=== PATIENT | female | born 2000 | race Caucasian/White ===

== ENCOUNTER 2025-10-06 16:53 | Emergency (ER) | payer SELFPAY ==
[~2025-10-06] VITALS: Ht 157.5 cm; Wt 60.0 kg
[2025-10-06 17:19] VITALS: O2SAT 99
[2025-10-06 18:22] LABS: GLUCOSE URINE 1+ (NEGATIVE); KETONES URINE NEGATIVE (NEGATIVE); LEUKOCYTE ESTERASE URINE NEGATIVE (NEGATIVE); NITRITE URINE NEGATIVE (NEGATIVE); OCCULT BLOOD URINE NEGATIVE (NEGATIVE); PH URINE 6.0 (4.5-8.0); PROTEIN URINE NEGATIVE (NEGATIVE); SPECIFIC GRAVITY URINE 1.014 (1.005-1.030); UROBILINOGEN URINE 0.2 E.U./dL (0.2-1.0)
[2025-10-06 18:39] LABS: COLOR URINE STRAW (YELLOW)
[2025-10-06 18:40] LABS: CLARITY URINE SL HAZY (CLEAR)
[2025-10-06 18:41] LABS: BACTERIA URINE 1+; RBC URINE NONE SEEN /hpf (0-2); SQUAMOUS EPITHELIAL CELL URINE 1+ /lpf (RARE/1+); WBC URINE 0-2 /hpf (0-2)
[2025-10-06 19:08] LABS: BASOPHILS % 0.7 % (0.0-2.0); EOSINOPHILS % 0.4 % (0.0-5.0); HEMATOCRIT. 43.5 % (36.0-48.0); HEMOGLOBIN. 14.2 g/dL (12.0-16.0); LYMPHOCYTES % 40.4 % (20.0-50.0); MEAN PLATELET VOLUME 10.8 fl (7.4-10.4); MONOCYTES % 6.6 % (2.0-8.0); NEUTROPHILS % 51.9 % (40.0-76.0); PLATELET 270 x1000/uL (130-400); RED BLOOD CELL COUNT 4.84 mill/uL (4.2-5.4); RED CELL DISTRIBUTION WIDTH 13.9 % (11.6-14.6)
[2025-10-06 19:23] LABS: CREATININE 0.7 mg/dL (0.6-1.0)
[2025-10-06 19:24] LABS: UREA NITROGEN BLOOD 7 mg/dL (9-23)
[2025-10-06 19:25] LABS: ASPARTATE AMINOTRANSFERASE 13 IU/L (<34)
[2025-10-06 19:26] LABS: BILIRUBIN DIRECT 0.2 mg/dL (<=3.0); BILIRUBIN TOTAL 0.5 mg/dL (0.1-1.0); PROTEIN TOTAL 7.4 g/dL (6.0-8.3)
[2025-10-06 20:06] LABS: HCG SCREEN NEGATIVE
[2025-10-06] MEDS ORDERED: AMOX-494 MT (20:42)
[2025-10-06 20:51] VITALS: BP 116/73; PULSE 77; RESP 18; TEMP 37.2; O2SAT 99
== END 2025-10-06 20:52 | disposition home or self-care (01) ==
LOC: EDBD → ER 16:53
DX: B34.9 Viral infection, unspecified (principal); H66.93 Otitis media, unspecified, bilateral; I10 Essential (primary) hypertension; J45.909 Unspecified asthma, uncomplicated
CPT/HCPCS: 36415; 80048; 80076; 81003; 81025; 83735; 84703; 85025; 99283

== ENCOUNTER 2025-10-07 19:02 | Emergency (ER) | payer BC ==
[~2025-10-07] VITALS: Ht 160 cm; Wt 61.0 kg
[~2025-10-07 19:02] MED LIST: AMOX-494 MT
[2025-10-07 19:04] VITALS: O2SAT 98
[2025-10-07 20:13] LABS: HEMATOCRIT. 42.1 % (36.0-48.0); HEMOGLOBIN. 14.0 g/dL (12.0-16.0); MEAN PLATELET VOLUME 10.6 fl (7.4-10.4); PLATELET 297 x1000/uL (130-400); RED BLOOD CELL COUNT 4.68 mill/uL (4.2-5.4); RED CELL DISTRIBUTION WIDTH 13.4 % (11.6-14.6)
[2025-10-07 20:45] LABS: CREATININE 0.6 mg/dL (0.6-1.0)
[2025-10-07 20:46] LABS: ETHANOL BLOOD < 10 mg/dL (<10); UREA NITROGEN BLOOD < 5 mg/dL (9-23)
[2025-10-07 20:47] LABS: ASPARTATE AMINOTRANSFERASE 34 IU/L (<34); PROTEIN TOTAL 6.9 g/dL (6.0-8.3)
[2025-10-07 20:48] LABS: BILIRUBIN DIRECT 0.2 mg/dL (<=3.0); BILIRUBIN TOTAL 0.7 mg/dL (0.1-1.0)
[2025-10-07] MEDS: SODIUM CHLORIDE 0.9% 1,000 ML IV ONE (21:15)
[2025-10-07] MEDS: DEXTROSE 50% WATER 50ML SYRINGE IV ONE (21:15)
[2025-10-07] MEDS: ONDANSETRON HCL 4MG/2ML INJ IV ONE (21:16)
[2025-10-07] MEDS: ONDANSETRON HCL 4MG/2ML INJ IV SCH (21:16)
[2025-10-07 21:57] LABS: LYMPHOCYTES % MANUAL 11.0 % (20.0-60.0); MONOCYTES % MANUAL 4.0 % (2.0-8.0); NEUTROPHILS % MANUAL 85.0 % (45.0-75.0); PLATELET ESTIMATE NORMAL
[2025-10-07 22:22] LABS: *AMPHETAMINES SCREEN URINE NEGATIVE (NEGATIVE); *BARBITURATES SCREEN URINE NEGATIVE (NEGATIVE); *BENZODIAZEPINES SCREEN URINE NEGATIVE (NEGATIVE)
[2025-10-07 22:23] LABS: *COCAINE SCREEN URINE NEGATIVE (NEGATIVE); CANNABINOID URINE SCREEN PRESUMPTIVE POSITIVE (NEGATIVE); ECSTASY MDMA SCREEN URINE NEGATIVE (NEGATIVE); METHADONE URINE SCREEN NEGATIVE (NEGATIVE); OPIATES URINE SCREEN NEGATIVE (NEGATIVE); PHENCYCLIDINE URINE SCREEN NEGATIVE (NEGATIVE)
[2025-10-07 23:39] LABS: CLARITY URINE TURBID (CLEAR); COLOR URINE BROWN (YELLOW)
[2025-10-07 23:40] LABS: GLUCOSE URINE 3+ (NEGATIVE); PH URINE 6.0 (4.5-8.0); PROTEIN URINE 1+ (NEGATIVE); SPECIFIC GRAVITY URINE 1.025 (1.005-1.030)
[2025-10-07 23:41] LABS: KETONES URINE 2+ (NEGATIVE); LEUKOCYTE ESTERASE URINE NEGATIVE (NEGATIVE); NITRITE URINE NEGATIVE (NEGATIVE); OCCULT BLOOD URINE 3+ (NEGATIVE); UROBILINOGEN URINE 0.2 E.U./dL (0.2-1.0)
[2025-10-07 23:45] LABS: RBC URINE TNTC /hpf (0-2)
[2025-10-07 23:46] LABS: BACTERIA URINE 1+; SQUAMOUS EPITHELIAL CELL URINE 1+ /lpf (RARE/1+)
[2025-10-08] MEDS: IBUPROFEN 600MG TABLET PO NR (03:56)
[2025-10-08] MEDS: AMOXICILLIN 500MG CAPSULE PO NR (04:04)
[2025-10-08 05:16] LABS: HCG SCREEN NEGATIVE
[2025-10-08] MEDS: DEXTROSE 50% WATER 50ML SYRINGE IV ONE (07:20)
[2025-10-08] MEDS: CEPHALEXIN 250MG CAPSULE PO STA (08:55)
[2025-10-08] MEDS: IBUPROFEN 600MG TABLET PO ONE (10:30)
[2025-10-08 14:47] VITALS: BP 116/81; PULSE 82; RESP 16; TEMP 37.1; O2SAT 100
== END 2025-10-08 15:15 ==
LOC: ER 19:02
DX: R45.851 Suicidal ideations (principal); F31.9 Bipolar disorder, unspecified; J45.909 Unspecified asthma, uncomplicated; Z79.899 Other long term (current) drug therapy; Z20.822 Contact with and (suspected) exposure to COVID-19
CPT/HCPCS: 80076; 80305; 80048; 81003; 80307; 80329; 80320; 83690; 83735; 85025; 36415; 93005; 96361; 96374; 99285; 87426; 82962; 84703; 96376; J2405; J7030; Z7610; G0480

== ENCOUNTER 2025-10-21 17:19 | Inpatient (IN) | payer BC ==
[~2025-10-21] VITALS: Ht 160 cm; Wt 62.4 kg
[2025-10-21 17:23] VITALS: O2SAT 98
[2025-10-21] MEDS: DEXTROSE 50% WATER 50ML SYRINGE IV ONE (17:48)
[2025-10-21] MEDS: ACETAMINOPHEN 500MG TABLET PO ONE (18:34)
[2025-10-21 20:21] LABS: BASOPHILS % 0.5 % (0.0-2.0); EOSINOPHILS % 0.2 % (0.0-5.0); HEMATOCRIT. 42.2 % (36.0-48.0); HEMOGLOBIN. 13.6 g/dL (12.0-16.0); LYMPHOCYTES % 19.8 % (20.0-50.0); MEAN PLATELET VOLUME 8.5 fl (7.4-10.4); MONOCYTES % 4.1 % (2.0-8.0); NEUTROPHILS % 75.4 % (40.0-76.0); PLATELET 404 x1000/uL (130-400); RED BLOOD CELL COUNT 4.66 mill/uL (4.2-5.4); RED CELL DISTRIBUTION WIDTH 13.7 % (11.6-14.6)
[2025-10-21 20:31] LABS: HCG SCREEN NEGATIVE
[2025-10-21 20:33] LABS: CREATININE 0.7 mg/dL (0.6-1.0); UREA NITROGEN BLOOD 5 mg/dL (9-23)
[2025-10-21 20:34] LABS: ETHANOL BLOOD < 10 mg/dL (<10); PROTEIN TOTAL 7.4 g/dL (6.0-8.3); TROPONIN I HIGH SENSITIVITY < 4 ng/L (3.0-34)
[2025-10-21 20:35] LABS: ASPARTATE AMINOTRANSFERASE 20 IU/L (<34); BILIRUBIN DIRECT 0.2 mg/dL (<=3.0); BILIRUBIN TOTAL 0.5 mg/dL (0.1-1.0)
[2025-10-21] MEDS: SODIUM CHLORIDE 0.9% (SEPSIS BOLUS) IV ONE (21:28)
[2025-10-21] MEDS: CEFTRIAXONE 1GM/50ML 50 ML IV NR (21:44)
[2025-10-21 23:15] VITALS: BP 118/81; PULSE 86; RESP 21; TEMP 36.5848
[2025-10-21 23:27] VITALS: BP 118/81; PULSE 86; RESP 17; TEMP 36.5848
[2025-10-21] MEDS ORDERED: ARIP10TA86 MT (23:53)
[2025-10-21] MEDS ORDERED: EFXR15 MT (23:53)
[2025-10-22 04:00] VITALS: BP 103/73; PULSE 93; RESP 20; TEMP 36.6; O2SAT 89
[2025-10-22] MEDS ORDERED: DEXTROSE 50% WATER 50ML SYRINGE IV PRN (05:45)
[2025-10-22] MEDS: POTASSIUM CHLORIDE 20MEQ TABLET SR PO NR (06:50)
[2025-10-22] MEDS: BLOOD SUGAR DIAGNOSTIC STRIP TEST SCH (06:50)
[2025-10-22] MEDS ORDERED: IPRATROPIUM/ALBUTEROL 0.5-3(2.5)MG/3ML NEB HHN PRN (07:00)
[2025-10-22] MEDS ORDERED: ONDANSETRON HCL 4MG/2ML INJ IV PRN (07:00)
[2025-10-22] MEDS ORDERED: ACETAMINOPHEN 325MG TABLET PO PRN ×2 (07:00)
[2025-10-22] MEDS ORDERED: DOCUSATE SODIUM 100MG CAPSULE PO PRN (07:00)
[2025-10-22] MEDS ORDERED: CLONIDINE 0.1MG TABLET PO PRN (07:00)
[2025-10-22] MEDS: INSULIN LISPRO 100 UNITS/ML SUBCUT SCH ×2 (07:10→12:41)
[2025-10-22 08:00] VITALS: BP 97/67; PULSE 88; RESP 18; TEMP 36.8; O2SAT 98
[2025-10-22 08:54] LABS: *AMPHETAMINES SCREEN URINE NEGATIVE (NEGATIVE)
[2025-10-22 08:55] LABS: *BARBITURATES SCREEN URINE NEGATIVE (NEGATIVE); *BENZODIAZEPINES SCREEN URINE NEGATIVE (NEGATIVE); *COCAINE SCREEN URINE NEGATIVE (NEGATIVE); CANNABINOID URINE SCREEN NEGATIVE (NEGATIVE); METHADONE URINE SCREEN NEGATIVE (NEGATIVE); OPIATES URINE SCREEN NEGATIVE (NEGATIVE); PHENCYCLIDINE URINE SCREEN NEGATIVE (NEGATIVE)
[2025-10-22 08:56] LABS: ECSTASY MDMA SCREEN URINE NEGATIVE (NEGATIVE)
[2025-10-22] MEDS: VENLAFAXINE HCL 37.5MG SR CAPSULE 24HR PO SCH (09:29)
[2025-10-22 10:28] LABS: BASOPHILS % 1.2 % (0.0-2.0); EOSINOPHILS % 1.8 % (0.0-5.0); HEMATOCRIT. 37.5 % (36.0-48.0); HEMOGLOBIN. 12.1 g/dL (12.0-16.0); LYMPHOCYTES % 24.9 % (20.0-50.0); MEAN PLATELET VOLUME 9.2 fl (7.4-10.4); MONOCYTES % 5.2 % (2.0-8.0); NEUTROPHILS % 66.9 % (40.0-76.0); PLATELET 357 x1000/uL (130-400); RED BLOOD CELL COUNT 4.07 mill/uL (4.2-5.4); RED CELL DISTRIBUTION WIDTH 13.7 % (11.6-14.6)
[2025-10-22 10:36] LABS: CREATININE 0.9 mg/dL (0.6-1.0); UREA NITROGEN BLOOD 8 mg/dL (9-23)
[2025-10-22] MEDS ORDERED: NALOXONE HCL 0.4MG/ML VIAL IV PRN (11:15)
[2025-10-22 12:00] VITALS: BP 105/68; PULSE 84; RESP 16; TEMP 36.8; O2SAT 100
[2025-10-22] MEDS: HYDROCODONE/ACETAMINOPHEN 5/325MG TABLET PO PRN (12:30)
[2025-10-22] MEDS: INSULIN GLARGINE 100 UNITS/ML SUBCUT SCH (12:41)
[2025-10-22 16:00] VITALS: BP 110/75; PULSE 101; RESP 19; TEMP 36.9; O2SAT 100
[2025-10-22 20:00] VITALS: BP 110/86; PULSE 101; RESP 19; TEMP 36.8; O2SAT 99
[2025-10-22] MEDS ORDERED: ARIPIPRAZOLE 5MG TABLET PO SCH (21:00)
[2025-10-22] MEDS: QUETIAPINE FUMARATE 25MG TABLET PO SCH (21:07)
[2025-10-23] VITALS: BP 97/65; PULSE 92; RESP 13; TEMP 36.3; O2SAT 99
[2025-10-23 04:00] VITALS: BP 107/64; PULSE 90; RESP 20; TEMP 36.8; O2SAT 98
[2025-10-23 08:00] VITALS: BP 101/63; PULSE 79; RESP 20; TEMP 36.8; O2SAT 100
[2025-10-23] MEDS ORDERED: INSLIS SUBCUT (09:54)
[2025-10-23] MEDS ORDERED: LANTUSUD SUBCUT (09:54)
[2025-10-23] MEDS ORDERED: QUET25TA PO (09:54)
[2025-10-23] MEDS: INSULIN GLARGINE 100 UNITS/ML SUBCUT SCH (11:09)
[2025-10-23 12:00] VITALS: BP 108/63; PULSE 90; RESP 16; TEMP 36.4; O2SAT 100
[2025-10-23 15:30] VITALS: BP 108/63; PULSE 90; RESP 19; TEMP 98.3
== END 2025-10-23 16:00 | disposition home or self-care (01) | DRG 639 ==
LOC: ER 17:19 → 3WST 21:01 → EDBEDREQTM 21:23 → EDBEDREQ 21:23 → ENRESERV 22:35
PROVIDERS: ADMIT Internal Medicine; ATTEND Internal Medicine
DX: E10.649 Type 1 diabetes mellitus with hypoglycemia without coma (principal); S09.90XA Unspecified injury of head, initial encounter; E10.65 Type 1 diabetes mellitus with hyperglycemia; D72.829 Elevated white blood cell count, unspecified; F31.9 Bipolar disorder, unspecified; J45.909 Unspecified asthma, uncomplicated; S00.03XA Contusion of scalp, initial encounter; Z79.4 Long term (current) use of insulin; Z91.52 Personal history of nonsuicidal self-harm; X58.XXXA Exposure to other specified factors, initial encounter; Y93.89 Activity, other specified; Y92.89 Other specified places as the place of occurrence of the external cause; Y99.8 Other external cause status
CPT/HCPCS: 36415; 71045; 80048; 80076; 80305; 80320; 82550; 82962; 83036; 83605; 83735; 84145; 84484; 84703; 85025; 99291; A4606; J0696; J1815; G0480

== ENCOUNTER 2025-11-01 11:43 | Emergency (ER) | payer BC ==
[~2025-11-01] VITALS: Ht 162.6 cm; Wt 61.0 kg
[~2025-11-01 11:43] MED LIST changes: -AMOX-494 MT; +EFXR15 MT; +INSLIS SUBCUT; +LANTUSUD SUBCUT; +QUET25TA PO
[2025-11-01 11:50] VITALS: O2SAT 99
[2025-11-01] MEDS ORDERED: BENZ1LOZ73 MM (12:50)
[2025-11-01] MEDS ORDERED: PENI500T MT (12:50)
[2025-11-01] MEDS ORDERED: QUET25TA MT (13:01)
[2025-11-01] MEDS ORDERED: VENL150C52 MT (13:01)
[2025-11-01 13:11] VITALS: BP 120/77; PULSE 91; RESP 15; TEMP 36.9; O2SAT 99
== END 2025-11-01 13:12 | disposition home or self-care (01) ==
LOC: ER 11:43
DX: J02.8 Acute pharyngitis due to other specified organisms (principal); F31.9 Bipolar disorder, unspecified; F41.9 Anxiety disorder, unspecified; J45.909 Unspecified asthma, uncomplicated; Z76.0 Encounter for issue of repeat prescription; Z79.899 Other long term (current) drug therapy
CPT/HCPCS: 81025; 87070; 87430; 99283